=== PATIENT | male | born 1950 | race Caucasian/White ===

== ENCOUNTER 2016-09-01 09:34 | Day surgery (SDC) | payer MEDICARE, OTHER ==
[~2016-09-01 09:34] MED LIST: KETOROLAC TROMETHAMINE 0.45% 4 DROP/0.4 ML DROPERETTE OD PRN
[2016-09-01] MEDS ORDERED: EPINEPHRINE INJ/PF 1 MG/1 ML AMPULE ONE (09:55)
[2016-09-01] MEDS ORDERED: LIDOCAINE 1% INJ-PF (10 MG/ML) 30 ML SDV ONE (09:56)
[2016-09-01] MEDS: TETRACAINE HCL 0.5% OPH SOLN 2 ML OD PRN ×3 (10:15→11:33)
[2016-09-01] MEDS: BESIFLOXACIN HCL 0.6% OPH SUSP 5 ML BOTTLE OD PRN ×4 (10:15→12:11)
[2016-09-01] MEDS: TROPICAMIDE 1% OPH SOLN 3 ML OD PRN ×3 (10:15→10:30)
[2016-09-01] MEDS: CYCLOPENTOLATE 0.2%/PHENYLEPHRINE 1% OPH SOLN 2 ML OD PRN ×3 (10:15→10:30)
[2016-09-01] MEDS ORDERED: MIDAZOLAM 2 MG/2 ML INJ ONE (11:21)
[2016-09-01] MEDS ORDERED: FENTANYL CITRATE INJ/PF 100 MCG/2 ML AMPUL ONE ×2 (11:22→11:40)
[2016-09-01] MEDS: CHONDR SU A NA/HYALUR INTRAOC KIT (SURGICARE) ONE ×2 (11:59)
--- NOTE | 2016-09-02 06:08 | [facility] OPERATIVE REPORT E ---
[facility] Operative Report NAME: WESLEY SPENCER AGE: 66Y DATE OF SURGERY: 09/01/2016 ROOM: PREOPERATIVE DIAGNOSIS: CATARACT, RIGHT EYE. POSTOPERATIVE DIAGNOSIS: CATARACT, RIGHT EYE. OPERATION: Cataract extraction with intraocular lens implant of the right eye. SURGEON: JONY CARRERA M.D. ANESTHESIA: Topical. PROCEDURE: After obtaining appropriate consent, the patient's right eye was prepped and draped in sterile fashion as well as the surgeon in a sterile manner and cataract surgery was started. First a paracentesis blade was used to make a small side-port incision. Viscoelastic was used to inflate the anterior chamber. Next a 2.4 mm incision was made with the paracentesis blade. A continuous capsulorrhexis incision was made using a cystotome and Utrata forceps. Following this hydrodissection was carried out to make the lens fully loose and mobile and it was rotated 90 degrees. Following this, a abizis-phy-mxtzvmv technique was used to phacoemulsify the lens with a CDE of 7.16. The remaining cortex was removed with irrigation/aspiration. Provisc was instilled into the capsular bag to inflate the bag. A SN60WF, 22.5 diopter lens was placed. The remaining viscoelastic material was removed with irrigation/aspiration. Following this, a 10-0 nylon suture was used to close the incision and it was found to be watertight. Vigamox was instilled in the eye and a protective shield was placed over the eye. The patient returned to the postoperative recovery in stable condition. DICTATING PHYSICIAN: JONY CARRERA M.D. [id number] PHY#: [id number] ID: [id number] JOB#: [id number] ACCT: [id number] cc:JONY CARRERA M.D. >
--- NOTE | 2016-09-02 06:13 | [facility] DISCHARGE SUMMARY E ---
[facility] Discharge Summary NAME: WESLEY SPENCER AGE: 66Y ADMITTED: 09/01/2016 DISCHARGED: 09/01/2016 HOSPITAL COURSE: This is a 66-year-old male who underwent cataract extraction of the right eye diagnosed as cataract right eye. He underwent surgery because he was having difficulty reading small print. He should be on a regular diet. No bending at his waist. No heavy lifting. He should use Besivance, Ilevro, and Durezol at 3 p.m. and 8 p.m., and to sleep with a rigid shield, and I will see him for his one day postoperative tomorrow. DICTATING PHYSICIAN: JONY CARRERA M.D. [id number] PHY#: [id number] ID: [id number] JOB#: [id number] ACCT: [id number] cc:JONY CARRERA M.D. >
== END 2016-09-01 13:15 | disposition home or self-care (01) ==
LOC: SC 09:34
PROVIDERS: ATTEND Internal Medicine
PROC: 08RJ3JZ Replacement of Right Lens with Synthetic Substitute, Percutaneous Approach (ICD-10-PCS; principal; 2016-09-01 11:00)
DX: H25.813 Combined forms of age-related cataract, bilateral (principal); K21.9 Gastro-esophageal reflux disease without esophagitis; E78.00 Pure hypercholesterolemia, unspecified; F17.210 Nicotine dependence, cigarettes, uncomplicated; H04.123 Dry eye syndrome of bilateral lacrimal glands; H43.812 Vitreous degeneration, left eye; H52.4 Presbyopia; Z79.899 Other long term (current) drug therapy; Z79.82 Long term (current) use of aspirin
CPT/HCPCS: 66984; V2632; J2250; J3490 ×2; A9270; J0171; J3010; 142

== ENCOUNTER 2016-09-13 07:45 | Day surgery (SDC) | payer MEDICARE, OTHER ==
[~2016-09-13 07:45] MED LIST changes: -KETOROLAC TROMETHAMINE 0.45% 4 DROP/0.4 ML DROPERETTE OD PRN; +KETOROLAC TROMETHAMINE 0.45% 4 DROP/0.4 ML DROPERETTE OS PRN
[2016-09-13] MEDS ORDERED: EPINEPHRINE INJ/PF 1 MG/1 ML AMPULE ONE (07:46)
[2016-09-13] MEDS ORDERED: LIDOCAINE 1% INJ-PF (10 MG/ML) 30 ML SDV ONE (07:47)
[2016-09-13] MEDS ORDERED: CHONDR SU A NA/HYALUR INTRAOC KIT (SURGICARE) ONE (07:47)
[2016-09-13] MEDS: BESIFLOXACIN HCL 0.6% OPH SUSP 5 ML BOTTLE OS PRN ×4 (08:13→09:29)
[2016-09-13] MEDS: TETRACAINE HCL 0.5% OPH SOLN 2 ML OS PRN ×3 (08:13→08:56)
[2016-09-13] MEDS: TROPICAMIDE 1% OPH SOLN 3 ML OS PRN ×3 (08:13→08:31)
[2016-09-13] MEDS: CYCLOPENTOLATE 0.2%/PHENYLEPHRINE 1% OPH SOLN 2 ML OS PRN ×3 (08:13→08:31)
[2016-09-13] MEDS ORDERED: MIDAZOLAM 2 MG/2 ML INJ ONE (08:28)
[2016-09-13] MEDS ORDERED: FENTANYL CITRATE INJ/PF 100 MCG/2 ML AMPUL ONE (08:28)
[2016-09-13] MEDS ORDERED: ONDANSETRON HCL INJ/PF 4 MG/2 ML SDV ONE (08:30)
--- NOTE | 2016-09-13 13:13 | [facility] DISCHARGE SUMMARY E ---
[facility] Discharge Summary NAME: WESLEY SPENCER AGE: 66Y ADMITTED: 09/13/2016 DISCHARGED: 09/13/2016 DIAGNOSIS: CATARACT, LEFT EYE. SUMMARY: This is a 66-year-old male who underwent cataract extraction of the left eye. He underwent surgery because he was having trouble driving, reading and watching TV. DISCHARGE INSTRUCTIONS: He should be on a regular diet, no bending at his waist, and no heavy lifting. He should use his Besivance, Ilevro and Durezol at 3 p.m. and 8 p.m. and sleep with a rigid shield. I will see him for his 1-day postoperative tomorrow. DICTATING PHYSICIAN: JONY CARRERA M.D. [id number] PHY#: [id number] ID: [id number] JOB#: [id number] ACCT: [id number] cc:JONY CARRERA M.D. >
--- NOTE | 2016-09-13 13:14 | [facility] OPERATIVE REPORT E ---
[facility] Operative Report NAME: WESLEY SPENCER AGE: 66Y DATE OF SURGERY: 09/13/2016 ROOM: PREOPERATIVE DIAGNOSIS: CATARACT, LEFT EYE. POSTOPERATIVE DIAGNOSIS: CATARACT, LEFT EYE. OPERATION: Cataract extraction with intraocular lens implant of the left eye. SURGEON: JONY CARRERA M.D. ANESTHESIA: Topical. PROCEDURE: After obtaining appropriate consent, the patient's left eye was prepped and draped in sterile fashion as well as the surgeon in a sterile manner and cataract surgery was started. First a paracentesis blade was used to make a small side-port incision. Viscoelastic was used to inflate the anterior chamber. Next a 2.4-mm incision was made with the paracentesis blade. A continuous capsulorrhexis incision was made using a cystotome and Utrata forceps. Following this hydrodissection was carried out to make the lens fully loose and mobile and it was rotated 90 degrees. Following this, a mxreyi-rwz-yrnwizh technique was used to phacoemulsify the lens with a CDE of 6.53. The remaining cortex was removed with irrigation/aspiration. Provisc was instilled into the capsular bag to inflate the bag. A SN60WF, 22.0 diopter lens was placed. The remaining viscoelastic material was removed with irrigation/aspiration. Following this, a 10-0 nylon suture was used to close the incision and it was found to be watertight. Vigamox was instilled in the eye and a protective shield was placed over the eye. The patient returned to the postoperative recovery in stable condition. DICTATING PHYSICIAN: JONY CARRERA M.D. [id number] PHY#: [id number] ID: [id number] JOB#: [id number] ACCT: [id number] cc:JONY CARRERA M.D. >
== END 2016-09-13 10:21 | disposition home or self-care (01) ==
LOC: SC 07:45
PROVIDERS: ATTEND Internal Medicine
PROC: 08RJ3JZ Replacement of Right Lens with Synthetic Substitute, Percutaneous Approach (ICD-10-PCS; principal; 2016-09-13 09:00)
DX: H25.812 Combined forms of age-related cataract, left eye (principal); Z96.1 Presence of intraocular lens; Z79.899 Other long term (current) drug therapy; Z79.82 Long term (current) use of aspirin
CPT/HCPCS: 66984; V2632; J2250; J3490 ×2; A9270; J0171; J3010; J2405; 142